=== PATIENT | female | born 1955 | race American Indian/Alaskan Native ===

== ENCOUNTER 2020-11-19 07:50 | Emergency (ER) | payer SELFPAY ==
[2020-11-19] MEDS ORDERED: traMADol 50 MG TAB PO NR (08:24)
[2020-11-19] MEDS ORDERED: IBUPROFEN 800 MG TAB PO ONE (08:24)
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
--- NOTE | 2020-11-19 10:40 | Electrocardiograph Report ---
[facility] Test Date: 2020-11-19 Test Time: 09:58:20 Pat Name: ABE REILLY Department: Room: Gender: F Heart Nurse: VANCE : 1955 Requested By: YUSRA AGUILAR Order Number: [id number] Reading MD: Deyvi Michaud Measurements Intervals [place] Rate: 76 P: 59 ID: [id number] QRS: 14 QRSD: 83 T: 40 QT: 373 QTc: 421 Interpretive Statements Sinus rhythm Minor baseline artifacts noted. No previous ECG available for comparison Electronically Signed On 11-19-2020 10:40:39 EDT by Deyvi Michaud
[2020-11-19 12:26] VITALS: BP 134/78
== END 2020-11-19 12:26 | disposition home or self-care (01) ==
LOC: ED 07:50
DX: S20.219A Contusion of unspecified front wall of thorax, initial encounter (principal); Z88.2 Allergy status to sulfonamides; Z88.8 Allergy status to other drugs, medicaments and biological substances; Z91.040 Latex allergy status; Z79.899 Other long term (current) drug therapy; V49.49XA Driver injured in collision with other motor vehicles in traffic accident, initial encounter; Y92.410 Unspecified street and highway as the place of occurrence of the external cause; Y93.89 Activity, other specified; Y99.8 Other external cause status
CPT/HCPCS: 71046; 93005